=== PATIENT | female | born 1955 | race African-American/Black ===

== ENCOUNTER 2017-08-29 17:04 | Emergency (ER) | payer OTHER ==
[~2017-08-29] VITALS: Ht 172.7 cm; Wt 97.5 kg
[2017-08-29 18:46] LABS: ABSOLUTE BASOPHIL COUNT 0 /CUMM (0.0-0.2); ABSOLUTE EOSINOPHIL COUNT 0.1 /CUMM (0.0-0.7); ABSOLUTE GRANULOCYTE CT 4.9 /CUMM (1.4-6.5); ABSOLUTE LYMPH COUNT 2.1 /CUMM (1.2-3.4); ABSOLUTE MONOCYTE COUNT 0.6 /CUMM (0.10-0.60); BASOPHIL % 0.6 % (0.0-2.0); EOSINOPHIL % 1.6 % (0-5); GRANULOCYTE % 63.6 % (42.2-75.2); HEMATOCRIT 38.2 % (37-47); MEAN CORPUSCULAR HGB 28.1 PG (27.0-31.0); MEAN CORPUSCULAR HGB CONC 32.9 G/DL (33.0-37.0); MEAN CORPUSCULAR VOLUME 85.5 FL (81.0-99.0); MEAN PLATELET VOLUME 8.2 FL (7.4-10.4); PLATELET COUNT 325 /CUMM (130-400); RBC DISTRIBUTION WIDTH 13.9 % (11.5-14.5); RED BLOOD CELL CT 4.47 /CUMM (4.20-5.40); WHITE BLOOD CELL COUNT 7.7 /CUMM (4.8-10.8)
--- NOTE | 2017-08-29 20:36 | RADIOLOGY REPORT ---
EXAMINATION: XR CHEST CLINICAL INFORMATION: Chest pain COMPARISON: None TECHNIQUE: 2 views of the chest were obtained. FINDINGS: Diffuse interstitial prominence. No focal consolidation or mass. No pleural effusion or pneumothorax. Cardiac silhouette is mildly enlarged. There are degenerative changes of the thoracic spine. IMPRESSION: Diffuse interstitial prominence, most likely pulmonary venous hypertension. The cardiac silhouette is mildly enlarged, which could reflect cardiomegaly and/or pericardial effusion.
--- NOTE | 2017-08-29 21:12 | ED CARDIAC/CP/PALPITATIONS ---
History of Present Illness General Chief Complaint: Chest Pain Stated Complaint: L ARM DISCOMFORT, TINGLING IN L HAND, CP Source: patient Exam Limitations: no limitations Vital Signs & Intake/Output Vital Signs & Intake/Output Vital Signs Date Time Temp Pulse Resp B/P B/P Pulse O2 O2 Flow FiO2 Mean Ox Delivery Rate 08/30 2231 97.7 70 16 148/76 99 Room Air 08/30 1951 97.8 63 18 152/86 98 08/29 1758 98.6 76 18 169/81 99 Room Air ED Intake and Output 08/30 0000 08/29 1200 Intake Total Output Total Balance Patient 215 lb Weight Allergies Coded Allergies: NO KNOWN ALLERGIES (08/29/17) Reconcile Medications Tylenol With Codeine (Tylenol With Codeine #3 Tablet) 300 MG-30 MG TABLET 1 TAB PO Q4-6 PRN PRN pain Triage Note: COMPLAINS OF L HAND AND ARM NUMBNESS THAT STARTED 3 DAYS AGO, DENIES CP/SOB. Triage Nurses Notes Reviewed? yes Onset: Gradual Duration: day(s): (3), better, changing over time, continues in ED Timing: remote history Quality/Severity: mild, aching Location: central Radiation: no radiation Activities at Onset: none Prior Chest Pain/Card Workup: no prior chest pain, no prior cardiac workup Modifying Factors: Worsens With: movement. Nitro Today/Relief: no nitro taken today Aspirin Today: no aspirin today LMP (ages 10-50): unknown : No Patient currently breastfeeds: No HPI: 62-year-old female with no past medical history presents for evaluation of pain in her left arm and chest pain. Patient states symptoms started about 3 days ago and have been improving. She states that the pain is located mostly in the left forearm and radiates into the hand. She describes the pain as an ache. She also reports that she did have some central chest pain that was very mild 5 out of 10. The pain did not radiate into the arm they were . No shortness of breath. The pain did not get worse with exertion. The arm pain is worse with movement. She reports taking ibuprofen at home with some improvement. No numbness or tingling no hemoptysis no lower extremity edema. No sniffing a cardiac history. No recent surgery recent trauma. Patient reports she had similar symptoms about a year ago and was told she has cervical radiculopathy. (Castillo Cedillo) Past History Travel History Traveled to [place] past 21 day No Medical History Any Pertinent Medical History? see below for history Neurological: NONE EENT: NONE Cardiovascular: NONE Respiratory: NONE Gastrointestinal: NONE Hepatic: NONE Renal: NONE Musculoskeletal: NONE Psychiatric: NONE Endocrine: NONE Blood Disorders: NONE Cancer(s): NONE GARDEN CONSULTANT/Reproductive: NONE Surgical History Surgical History: non-contributory Psychosocial History What is your primary language Maldivian Tobacco Use: Never used ETOH Use: denies use Illicit Drug Use: denies illicit drug use Family History Hx Contributory? No (Castillo Cedillo) Review of Systems Review of Systems Constitutional: Reports: no symptoms. EENTM: Reports: no symptoms. Respiratory: Reports: no symptoms. Cardiovascular: Reports: see HPI, chest pain. GI: Reports: no symptoms. Genitourinary: Reports: no symptoms. Musculoskeletal: Reports: see HPI, joint pain, muscle pain, muscle stiffness. Skin: Reports: no symptoms. Neurological/Psychological: Reports: no symptoms. Hematologic/Endocrine: Reports: no symptoms. Immunologic/Allergic: Reports: no symptoms. All Other Systems: Reviewed and Negative (Castillo Cedillo) Physical Exam Physical Exam General Appearance: well developed/nourished, no apparent distress, alert, awake Head: atraumatic, normal appearance Eyes: Bilateral: normal appearance, PERRL, EOMI. Ears, Nose, Throat: normal pharynx, normal ENT inspection, hearing grossly normal Neck: normal inspection, supple, full range of motion Respiratory: normal breath sounds, chest non-tender, no respiratory distress, lungs clear Cardiovascular: regular rate/rhythm, normal peripheral pulses Peripheral Pulses: 2+ radial (R), 2+ radial (L) Gastrointestinal: soft, non-tender Back: normal inspection, normal range of motion Extremities: normal inspection, normal range of motion, there is mild pain with range of motion of the left arm at the elbow. No swelling. Neurovascular supply is intact the bilateral upper and lower extremities patient is able to walk and bear weight without difficulty Neurologic/Psych: no motor/sensory deficits Skin: intact, normal color, warm/dry Lymphatic: no anterior cervical hari Core Measures ACS in differential dx? No CVA/TIA Diagnosis No Sepsis Present: No Sepsis Focused Exam Completed? No (Castillo Cedillo) Progress Differential Diagnosis: AMI, aortic dissection, atrial fibrillation, CHF/pulm edema, costochondritis, musculoskeletal pain, pericarditis, pneumonia, pneumothorax, PSVT, pulmonary embolism, PUD/GERD, PVCs/PACs, rib fracture, unstable angina, cervical radiculopathy, muscle strain Plan of Care: Orders Procedure Date/time Status TROPONIN LEVEL 08/29 2129 Complete EKG 08/29 2129 Active Add-on Test (ER Only) 08/29 2022 Active TROPONIN LEVEL 08/29 1799 Complete D-DIMER 08/29 1799 Complete COMPREHENSIVE METABOLIC PANEL 08/29 1800 Complete CBC WITHOUT DIFFERENTIAL 08/29 1799 Complete EKG 08/29 170 Active Laboratory Tests 08/29/172119: Troponin I < 0.01 08/29/171799: Anion Gap 11, Estimated GFR 57 L, BUN/Creatinine Ratio 17.0, Glucose 101 H, Calcium 10.6 H, Total Bilirubin 0.5, AST 20, ALT 23, Alkaline Phosphatase 79, Troponin I < 0.01, Total Protein 7.6, Albumin 4.0, Globulin 3.6, Albumin/ Globulin Ratio 1.1, D-Dimer High Sensitivty < 200, CBC w Diff NO MAN DIFF REQ, RBC 4.47, MCV 85.5, MCH 28.1, MCHC 32.9 L, RDW 13.9, MPV 8.2, Gran % 63.6, Lymphocytes % 26.6, Monocytes % 7.6, Eosinophils % 1.6, Basophils % 0.6, Absolute Granulocytes 4.9, Absolute Lymphocytes 2.1, Absolute Monocytes 0.6, Absolute Eosinophils 0.1, Absolute Basophils 0 Patient seen and evaluated. She is reporting pain in the left arm and mild central chest pain. Symptoms are present for 3 days but are significantly improving. On initial evaluation her pain was a 5 out of 10 and on reevaluation chest pain is completely resolved and arm pain is a 1 out of 10. The pain in the arm is worse with movement and palpation. No shortness of breath cough dizziness or lightheadedness. Blood work shows negative troponin negative d- dimer. EKG is stable. Chest x-ray showed some pulmonary venous interstitial prominence and cardiomegaly. No pulmonary edema. Patient has no JVD no shortness of breath no lower extremity edema no history of CHF. No evidence of pericardial tamponade. Patient is chest pain-free on reevaluation. Repeat EKG troponin will be assessed. Repeat EKG troponin is negative and unchanged. Patient remains chest pain-free. She was instructed to follow-up with primary care doctor and provided cardiovascular or nurse as soon as possible. Discussed return precautions in detail. Patient agrees the plan. Case discussed with Dr. Og he agrees. Diagnostic Imaging: Viewed by Me: Radiology Read. Discussed w/RAD: Radiology Read. Radiology Impression: PATIENT: MARY PERRIN PRESENT AGE: 62 PATIENT ACCOUNT NO: [id number] : 57 LOCATION: [facility] ORDERING PHYSICIAN: Castillo YOO SERVICE DATE: 08/29/17 EXAM TYPE: RAD - XRY-CHEST XRAY, TWO VIEWS EXAMINATION: XR CHEST CLINICAL INFORMATION: Chest pain COMPARISON: None TECHNIQUE: 2 views of the chest were obtained. FINDINGS: Diffuse interstitial prominence. No focal consolidation or mass. No pleural effusion or pneumothorax. Cardiac silhouette is mildly enlarged. There are degenerative changes of the thoracic spine. IMPRESSION: Diffuse interstitial prominence, most likely pulmonary venous hypertension. The cardiac silhouette is mildly enlarged, which could reflect cardiomegaly and/or pericardial effusion. DICTATED BY: Elvin Ventura MD DATE/TIME DICTATED:08/29/172030 INTERNET SALES MANAGER:KAY DATE/TIME TRANSCRIBED:08/29/172030 CONFIDENTIAL, DO NOT COPY WITHOUT APPROPRIATE AUTHORIZATION. Initial ED EKG: sinus rhythm, left atrial abnormality, probable inferior infarct (Castillo Cedillo) Departure Departure Disposition: HOME OR SELF CARE Condition: Stable Clinical Impression Primary Impression: Left arm pain Referrals: Tolu JENSEN,Emerson Chen (PCP/Family) Jason JENSEN PHD,Shahbaz Ballard Additional Instructions: Rest and avoid excessive physical activity or lifting or bending. use Tylenol 1000 mg every 6 hours as needed for pain. Tylenol with codeine for severe pain only this may cause drowsiness. Make a follow-up 1 with her primary care doctor to review all results of today's visit monitor symptoms return with any concerns. Departure Forms: Customer Survey General Discharge Information Prescriptions: Current Visit Scripts Tylenol With Codeine (Tylenol With Codeine #3 Tablet) 1 TAB PO Q4-6 PRN PRN pain #12 TAB (Castillo Cedillo) PA/BUSINESS SUPPORT COORDINATOR Co-Sign Statement Statement: ED Attending supervision documentation- [] I saw and evaluated the patient. I have also reviewed all the pertinent lab results and diagnostic results. I agree with the findings and the plan of care as documented in the PA's/BUSINESS SUPPORT COORDINATOR's documentation. [x] I have reviewed the ED Record and agree with the PA's/BUSINESS SUPPORT COORDINATOR's documentation. [] Additions or exceptions (if any) to the PAs/BUSINESS SUPPORT COORDINATOR's note and plan are summarized below: [] (Lenka JENSEN,Jeramy Davis) Critical Care Note Critical Care Note Critical Care Time: non-applicable (Castillo Cedillo)
[2017-08-29] MEDS ORDERED: TYLENOL WITH C1 EACH PO (22:17)
[2017-08-29 22:32] VITALS: BP 148/76
== END 2017-08-29 22:33 ==
LOC: ERH 17:04
PROVIDERS: Emergency Medicine
DX: M79.602 Pain in left arm (principal); R07.9 Chest pain, unspecified
CPT/HCPCS: 71046; 93005; 93010